=== PATIENT | female | born 1945 | race Caucasian/White ===

== ENCOUNTER 2016-05-03 03:09 | Emergency (ER) | payer MEDICARE, OTHER ==
[~2016-05-03 03:09] MED LIST: PROTONIX40 MG PO
[2016-05-03 06:47] LABS: HEMOGLOBIN 14.1 gm/dl (12.3-15.3); RED BLOOD COUNT 4.65 M/UL (4.00-5.10); WHITE BLOOD COUNT 5.7 K/UL (4.5-11.0)
[2016-05-03 07:05] LABS: BUN/CREATININE RATIO 20 (0-10)
== END 2016-05-03 10:46 | disposition home or self-care (01) ==
LOC: ER1 03:09
PROVIDERS: Student in an Organized Health Care Education/Training Program
DX: I82.4Z1 Acute embolism and thrombosis of unspecified deep veins of right distal lower extremity (principal); E11.65 Type 2 diabetes mellitus with hyperglycemia; E78.5 Hyperlipidemia, unspecified; E03.9 Hypothyroidism, unspecified; I13.0 Hypertensive heart and chronic kidney disease with heart failure and stage 1 through stage 4 chronic kidney disease, or unspecified chronic kidney disease; I50.9 Heart failure, unspecified; N18.9 Chronic kidney disease, unspecified; E11.22 Type 2 diabetes mellitus with diabetic chronic kidney disease; Z88.0 Allergy status to penicillin; Z88.5 Allergy status to narcotic agent; Z79.84 Long term (current) use of oral hypoglycemic drugs; Z79.02 Long term (current) use of antithrombotics/antiplatelets; Z79.82 Long term (current) use of aspirin; Z79.891 Long term (current) use of opiate analgesic; Z79.899 Other long term (current) drug therapy
CPT/HCPCS: 36415; 80053; 82009; 82803; 82962; 85025; 85610; 85730; 96360; 96372; 99283; J1815

== ENCOUNTER 2016-05-28 12:17 | Inpatient (IN) | payer MEDICARE, OTHER ==
[~2016-05-28] VITALS: Ht 160 cm; Wt 93.5 kg
[2016-05-28 12:55] LABS: HEMOGLOBIN 14.4 gm/dl (12.3-15.3); RED BLOOD COUNT 4.72 M/UL (4.00-5.10); WHITE BLOOD COUNT 5.6 K/UL (4.5-11.0)
[2016-05-28 13:16] LABS: BUN/CREATININE RATIO 18 (0-10)
[2016-05-28] MEDS ORDERED: CARAFATE1 GM/10 ML PO (23:20)
[2016-05-28] MEDS ORDERED: GLUCOTROL5 MG PO (23:21)
[2016-05-28] MEDS ORDERED: PROZAC 20 MG CA20 MG PO (23:21)
[2016-05-28] MEDS ORDERED: NEURONTIN 400400 MG PO (23:22)
[2016-05-28] MEDS ORDERED: PRAVACHOL80 MG PO (23:22)
[2016-05-28] MEDS ORDERED: REMERON 15 MG T15 MG PO (23:23)
[2016-05-28] MEDS ORDERED: HUMALOG 75/25 V10 ML SQ (23:23)
[2016-05-28] MEDS ORDERED: CATAPRES0.2 MG PO (23:24)
[2016-05-28] MEDS ORDERED: CYCLOBENZAPRINE10 MG PO (23:25)
[2016-05-28] MEDS ORDERED: OXYCODON-ACETA1 EAC1 PO (23:25)
[2016-05-28] MEDS ORDERED: AMLODIPINE BESYL5 MG PO (23:25)
[2016-05-28] MEDS ORDERED: KLONOPIN TAB 00.5 MG PO (23:26)
[2016-05-28] MEDS ORDERED: METOPROLOL TART25 MG PO (23:27)
[2016-05-28] MEDS ORDERED: SYNTHROID 25 M25 MCG PO (23:27)
[2016-05-28] MEDS ORDERED: PRADAXA 150 MG150 MG PO (23:28)
[2016-05-28] MEDS ORDERED: AMBIEN5 MG PO (23:28)
[2016-05-28] MEDS ORDERED: ASPIRIN325 MG PO (23:31)
[2016-05-29 05:12] LABS: HEMOGLOBIN 14.2 gm/dl (12.3-15.3); RED BLOOD COUNT 4.6 M/UL (4.00-5.10); WHITE BLOOD COUNT 4.8 K/UL (4.5-11.0)
[2016-05-29 05:32] LABS: BUN/CREATININE RATIO 18 (0-10)
[2016-05-30 06:47] LABS: BUN/CREATININE RATIO 15 (0-10)
[2016-05-30] MEDS ORDERED: LISINOPRIL5 MG PO (14:41)
== END 2016-05-30 15:29 | disposition home or self-care (01) | DRG 309 ==
LOC: ER1 12:17 → MED SURG 4 17:00 → ZEROF 17:00 → MED SURG 4 20:45
PROVIDERS: Emergency Medicine; ADMIT Internal Medicine Infectious Disease
DX: I49.8 Other specified cardiac arrhythmias (principal); G45.9 Transient cerebral ischemic attack, unspecified; I50.32 Chronic diastolic (congestive) heart failure; E11.65 Type 2 diabetes mellitus with hyperglycemia; R00.0 Tachycardia, unspecified; I11.0 Hypertensive heart disease with heart failure; Z86.718 Personal history of other venous thrombosis and embolism; Z86.73 Personal history of transient ischemic attack (TIA), and cerebral infarction without residual deficits; E03.9 Hypothyroidism, unspecified; E78.5 Hyperlipidemia, unspecified; G47.00 Insomnia, unspecified; F41.9 Anxiety disorder, unspecified; K21.9 Gastro-esophageal reflux disease without esophagitis; E66.9 Obesity, unspecified; Z68.36 Body mass index [BMI] 36.0-36.9, adult; Z98.890 Other specified postprocedural states; Z90.710 Acquired absence of both cervix and uterus; Z96.652 Presence of left artificial knee joint; Z82.49 Family history of ischemic heart disease and other diseases of the circulatory system; Z83.3 Family history of diabetes mellitus; Z80.3 Family history of malignant neoplasm of breast; Z88.0 Allergy status to penicillin; Z79.899 Other long term (current) drug therapy; Z79.82 Long term (current) use of aspirin; Z79.01 Long term (current) use of anticoagulants; R55 Syncope and collapse
CPT/HCPCS: ECHO; 36415; 70450; 70551; 71010; 80048; 80053; 80061; 82550; 82553; 82962; 83036; 83690; 83880; 84439; 84443; 84484; 85025; 85610; 85730; 87040; 93005; 93306; 93880; 96360; 96361; 97110; 99285; J7030